=== PATIENT | male | born 1970 | race Caucasian/White ===

== ENCOUNTER 2023-10-12 08:09 | Outpatient (CLI) | payer OTHER, SELFPAY | END 2023-10-12 08:10 | disposition home or self-care (01) | PROVIDERS: PCP Family Medicine; Visit Provider Family Medicine | DX: K50.90 Crohn's disease, unspecified, without complications (principal); M62.838 Other muscle spasm; Z12.5 Encounter for screening for malignant neoplasm of prostate | CPT/HCPCS: 80053; 80061; 82306; 82533; 82607; 84270; 84402; 84403; 84443; G0103 ==

== ENCOUNTER 2024-01-31 09:17 | Outpatient (CLI) | payer OTHER, SELFPAY | END 2024-01-31 09:18 | disposition home or self-care (01) | LOC: NFLDREF 02-02 12:10 | PROVIDERS: PCP Family Medicine; Visit Provider Family Medicine | DX: R79.89 Other specified abnormal findings of blood chemistry (principal); K50.90 Crohn's disease, unspecified, without complications; E27.49 Other adrenocortical insufficiency; R53.83 Other fatigue; E66.9 Obesity, unspecified | CPT/HCPCS: 80076; 82533; 84270; 84402; 84403 ==

== ENCOUNTER 2024-02-21 09:10 | Outpatient (CLI) | payer OTHER, SELFPAY | END 2024-02-21 09:11 | disposition home or self-care (01) | LOC: NFLDREF 02-23 07:59 | PROVIDERS: PCP Family Medicine; Referring Provider Family Medicine; Visit Provider Family Medicine | DX: R79.89 Other specified abnormal findings of blood chemistry (principal) | CPT/HCPCS: 84270; 84402; 84403 ==

== ENCOUNTER 2024-07-03 08:42 | Outpatient (CLI) | payer OTHER, SELFPAY | END 2024-07-03 08:43 | disposition home or self-care (01) | LOC: NFLDREF 07-05 23:34 | PROVIDERS: PCP Family Medicine; Referring Provider Family Medicine; Visit Provider Family Medicine | DX: R97.20 Elevated prostate specific antigen [PSA] (principal); E29.1 Testicular hypofunction; Z13.228 Encounter for screening for other metabolic disorders; Z13.6 Encounter for screening for cardiovascular disorders; Z12.5 Encounter for screening for malignant neoplasm of prostate | CPT/HCPCS: 80053; 80061; 84270; 84402; 84403; G0103 ==